=== PATIENT | female | born 1985 | race Caucasian/White ===

== ENCOUNTER 2020-09-22 21:15 | Emergency (ER) | payer OTHER ==
[~2020-09-22] VITALS: Ht 160 cm; Wt 68.0 kg
[~2020-09-22 21:15] MED LIST: ALPR0.25 PO; ESTR0.5T PO; OXYC20TA2 PO
[2020-09-22 22:01] LABS: BASOPHILS % (AUTO) 1 % (0-1); EOSINOPHILS % (AUTO) 1 % (1-7); LYMPHOCYTES % (AUTO) 23 % (22-44); MEAN CORPUSCULAR HEMOGLOBIN 30.1 pg (27.0-34.8); MEAN CORPUSCULAR HGB CONC 32.8 g/dL (32.4-35.8); MEAN PLATELET VOLUME 7.6 fL (7.4-10.4); MONOCYTES % (AUTO) 6 % (2-9); NEUTROPHILS % (AUTO) 69 % (42-75); PLATELET COUNT 236 x10^3/uL (130-400); RED BLOOD COUNT 4.82 x10^6/uL (3.82-5.3); RED CELL DISTRIBUTION WIDTH 14.1 % (9.6-15.2)
[2020-09-22 22:02] LABS: MD NO
[2020-09-22 22:13] LABS: ALANINE AMINOTRANSFERASE 84 U/L (12-78); ALBUMIN 3.9 g/dL (3.4-5.0); ANION GAP 9 mmol/L (5-15); CALCIUM 8.5 mg/dL (8.5-10.1); CHLORIDE 112 mmol/L (98-107); CREATININE 0.79 mg/dL (0.55-1.02)
[2020-09-22 22:17] LABS: ALKALINE PHOSPHATASE 69 U/L (45-117); BILIRUBIN,TOTAL 0.3 mg/dL (0.2-1.0); TOTAL PROTEIN 7.3 g/dL (6.4-8.2)
[2020-09-22 22:22] LABS: MICROSCOPIC AUTO
--- NOTE | 2020-09-22 23:26 | NUR ---
PT STATES SHE IS NOT SURE IF SHE IS RH POSITIVE OR RH NEGATIVE. PT STATES SHE DOES NOT WANT TO WAIT FOR THE RESULTS OF RH FACTOR AND IS GOING TO LEAVE HOME. SHE SAID SHE DID NOT HAVE [facility] DURING FIRST . PT EDUCATED AND SIGNED [facility] REFUSAL PAPERWORK AND ADDED TO PAPERCHART BEFORE HER DEPARTURE.
[2020-09-22 23:28] VITALS: BP 130/82
== END 2020-09-22 23:29 | disposition home or self-care (01) ==
LOC: ED 21:42
DX: O03.9 Complete or unspecified spontaneous abortion without complication (principal)
CPT/HCPCS: 36415; 76830; 80053; 81001; 84702; 85025; 86901; 99284